=== PATIENT | male | born 1975 | race Caucasian/White ===

== ENCOUNTER 2019-07-03 19:43 | Observation (INO) ==
[2019-07-03] MEDS ORDERED: amLODIPine 5 MG TABLET PO STA (20:59)
[2019-07-03] MEDS ORDERED: cloNIDine HCl 0.1 MG TABLET PO ONE (20:59)
[2019-07-03 21:12] LABS: Basophils # 0.1 K/mcL (0.0-0.2); Basophils % 0.8 %; Eosinophils # 0.4 K/mcL (0.0-0.6); Eosinophils % 2.8 %; Hematocrit 39.2 % (37.5-50.1); Hemoglobin 13.5 g/dL (12.9-16.9); Immature Granulocytes % 0.2 % (0-4); Lymphocytes % 23.5 %; Mean Corpuscular HGB Conc 34.4 g/dL (31.6-35.5); Mean Corpuscular Hemoglobin 30.9 pg (28.0-33.3); Mean Corpuscular Volume 89.7 fL (83.0-100.0); Mean Platelet Volume 10.7 fL (9.4-12.4); Monocytes # 0.9 K/mcL (0.0-1.3); Monocytes % 6.9 %; Neutrophils # 8.3 K/mcL (1.6-8.9); Platelet Count 288 K/mcL (140-400); Red Blood Count 4.37 M/mcL (4.19-5.50); Red Cell Distribution Width 13.3 % (11.5-14.5); Segmented Neutrophils % 65.8 %; White Blood Count 12.7 K/mcL (4.3-11.1)
[2019-07-03 21:32] LABS: Alanine Aminotransferase 24 Units/L (7-52); Albumin 4.6 g/dL (3.5-5.7); Albumin/Globulin Ratio 1.6 (1.1-2.2); Alkaline Phosphatase 165 Units/L (34-104); Aspartate Amino Transferase 18 Units/L (13-39); BUN/Creatinine Ratio 11 (6-26); Bilirubin,Total 0.3 mg/dL (0.3-1.0); Blood Urea Nitrogen 44 mg/dL (6-20); Calcium 9.2 mg/dL (8.6-10.3); Carbon Dioxide 24 mEq/L (23-29); Chloride 102 mEq/L (98-107); Globulin 2.8 g/dL (2.4-3.5); Glucose 64 mg/dL (70-105); Osmolality,Calculated 297 (280-300); Potassium 4.1 mEq/L (3.5-5.1); Sodium 139 mEq/L (136-145); Total Protein 7.4 g/dL (6.4-8.9); Troponin I < 0.03 ng/mL (< 0.04); eGFR For African Americans 19 (> 60); eGFR For Non-African Americans 16 (> 60)
[2019-07-03 22:26] LABS: Bilirubin,Urine Negative (Negative); Blood,Urine Trace (Negative); Clarity,Urine Clear (Clear); Color,Urine Yellow (Yellow); Glucose,Urine (UA) Normal (Normal); Ketones,Urine Negative (Negative); Leukocyte Esterase,Urine Negative (Negative); Nitrite,Urine Negative (Negative); Protein,Urine 100 mg/dL (Neg-Trace); Specific Gravity,Urine 1.013 (1.010-1.025); Urobilinogen,Urine Normal (Normal)
[2019-07-03 22:29] LABS: Bacteria,Urine None Seen per hpf (None-Few); Hyaline Casts,Urine None Seen per lpf (None-Few); RBC,Urine 0-3 per hpf (0-3); Squamous Epithelial Cell,Urine None Seen per lpf (None-Few); WBC,Urine 0-3 per hpf (0-3)
[2019-07-03] MEDS ORDERED: 0.9 % Sodium Chloride 1,000 ML IVC ONE (23:11)
[2019-07-03] MEDS ORDERED: Naloxone 0.4 MG/ML INJ IVP PRN (23:41)
[2019-07-03] MEDS ORDERED: Dextrose Gel 15 GM/37.5 ML TUBE PO PRN ×2 (23:43)
[2019-07-03] MEDS ORDERED: *HR* Dextrose 50 % in Water (Syg) 50 ML SYRINGE IVP PRN (23:43)
[2019-07-03] MEDS ORDERED: D5% in Water 1,000 ML IVC PRN (23:43)
[2019-07-04 01:25] LABS: Basophils # 0.1 K/mcL (0.0-0.2); Basophils % 0.7 %; Eosinophils # 0.3 K/mcL (0.0-0.6); Eosinophils % 2.1 %; Hematocrit 37.4 % (37.5-50.1); Immature Granulocytes % 0.4 % (0-4); Lymphocytes # 4.1 K/mcL (0.6-4.6); Mean Corpuscular HGB Conc 34.8 g/dL (31.6-35.5); Mean Corpuscular Hemoglobin 30.5 pg (28.0-33.3); Mean Corpuscular Volume 87.8 fL (83.0-100.0); Mean Platelet Volume 10.9 fL (9.4-12.4); Monocytes # 0.7 K/mcL (0.0-1.3); Monocytes % 5.3 %; Neutrophils # 8.3 K/mcL (1.6-8.9); Platelet Count 274 K/mcL (140-400); Red Blood Count 4.26 M/mcL (4.19-5.50); Red Cell Distribution Width 13.4 % (11.5-14.5); Segmented Neutrophils % 61.5 %; White Blood Count 13.5 K/mcL (4.3-11.1)
[2019-07-04 01:42] LABS: Calcium 8.8 mg/dL (8.6-10.3); Potassium 4.7 mEq/L (3.5-5.1)
[2019-07-04] MEDS: *HR* Heparin 5,000 UNIT/ML VIAL SQ SCH ×2 (05:13→16:35)
[2019-07-04] MEDS: Insulin DETEMIR 100 UNIT/ML X5UNITS SQ SCH (08:04)
[2019-07-04] MEDS: Insulin LISPRO 300 UNITS/3 ML VIAL SQ SCH ×3 (08:04→16:35)
[2019-07-04] MEDS: Gabapentin 300 MG CAPSULE PO SCH ×2 (08:05→21:59)
[2019-07-04] MEDS: amLODIPine 5 MG TABLET PO SCH (08:05)
[2019-07-04 08:29] LABS: Estimated Average Glucose 151 mg/dl
[2019-07-04] MEDS: 0.9 % Sodium Chloride 1,000 ML IVC SCH ×2 (12:06→23:30)
[2019-07-04 21:38] LABS: Creatinine,Urine < 1 mg/dL; Microalbumin,Urine 240 mg/L
[2019-07-04 22:08] LABS: Bilirubin,Urine Negative (Negative); Blood,Urine Negative (Negative); Clarity,Urine Clear (Clear); Color,Urine Yellow (Yellow); Glucose,Urine (UA) Normal (Normal); Ketones,Urine Negative (Negative); Specific Gravity,Urine 1.008 (1.010-1.025)
[2019-07-04 22:09] LABS: Bacteria,Urine None Seen per hpf (None-Few); Leukocyte Esterase,Urine Negative (Negative); Nitrite,Urine Negative (Negative); Protein,Urine 30 mg/dL (Neg-Trace); Squamous Epithelial Cell,Urine Few per lpf (None-Few); Urobilinogen,Urine Normal (Normal)
[2019-07-05 03:30] LABS: Basophils # 0.1 K/mcL (0.0-0.2); Basophils % 0.7 %; Eosinophils # 0.5 K/mcL (0.0-0.6); Eosinophils % 3.5 %; Hematocrit 36.2 % (37.5-50.1); Hemoglobin 12.1 g/dL (12.9-16.9); Immature Granulocytes % 0.2 % (0-4); Lymphocytes # 5.9 K/mcL (0.6-4.6); Mean Corpuscular HGB Conc 33.4 g/dL (31.6-35.5); Mean Corpuscular Volume 89.8 fL (83.0-100.0); Mean Platelet Volume 11.3 fL (9.4-12.4); Monocytes # 0.8 K/mcL (0.0-1.3); Monocytes % 6.4 %; Neutrophils # 5.5 K/mcL (1.6-8.9); Platelet Count 256 K/mcL (140-400); Red Blood Count 4.03 M/mcL (4.19-5.50); Red Cell Distribution Width 13.5 % (11.5-14.5); Segmented Neutrophils % 43.2 %; White Blood Count 12.8 K/mcL (4.3-11.1)
[2019-07-05 03:52] LABS: Calcium 8.7 mg/dL (8.6-10.3); Potassium 4.3 mEq/L (3.5-5.1)
[2019-07-05 04:14] LABS: Hepatitis B Surface Antigen Nonreactive (Nonreactive)
[2019-07-05 04:43] LABS: Hepatitis C Virus Antibody Nonreactive (Nonreactive)
[2019-07-05 04:44] LABS: Hepatitis A Antibody IgM Nonreactive (Nonreactive); Hepatitis B Core IgM Nonreactive (Nonreactive)
[2019-07-05] MEDS: *HR* Heparin 5,000 UNIT/ML VIAL SQ SCH (06:16)
[2019-07-05] MEDS: Insulin DETEMIR 100 UNIT/ML X5UNITS SQ SCH (08:29)
[2019-07-05] MEDS: Insulin LISPRO 300 UNITS/3 ML VIAL SQ SCH ×2 (08:29→12:48)
[2019-07-05] MEDS: Gabapentin 300 MG CAPSULE PO SCH (08:29)
[2019-07-05] MEDS: amLODIPine 5 MG TABLET PO SCH (08:29)
[2019-07-05 11:43] VITALS: BP 120/68
== END 2019-07-05 13:43 | disposition home or self-care (01) ==
LOC: 2ANU 19:43 → EMEROOARM 19:43 → SUATTDRO 23:20 → 2ANU 07-04 00:02
PROVIDERS: ADMIT Internal Medicine; ATTEND Family Medicine

== ENCOUNTER 2020-10-18 18:34 | Observation (INO) ==
[2020-10-18] MEDS: 0.9 % Sodium Chloride 1,000 ML IVC SCH (18:57)
[2020-10-18 19:17] LABS: Basophils # 0.1 K/mcL (0.0-0.2); Basophils % 0.6 %; Eosinophils # 0.3 K/mcL (0.0-0.6); Eosinophils % 2.2 %; Hemoglobin 12.6 g/dL (12.9-16.9); Immature Granulocytes % 0.5 % (0-4); Lymphocytes # 2.2 K/mcL (0.6-4.6); Lymphocytes % 15.9 %; Mean Corpuscular HGB Conc 32.3 g/dL (31.6-35.5); Mean Corpuscular Hemoglobin 29.4 pg (28.0-33.3); Mean Corpuscular Volume 91.1 fL (83.0-100.0); Mean Platelet Volume 10.2 fL (9.4-12.4); Monocytes # 0.8 K/mcL (0.0-1.3); Neutrophils # 10.5 K/mcL (1.6-8.9); Platelet Count 296 K/mcL (140-400); Red Blood Count 4.28 M/mcL (4.19-5.50); Red Cell Distribution Width 14.6 % (11.5-14.5); Segmented Neutrophils % 74.8 %
[2020-10-18] MEDS ORDERED: Prochlorperazine 10 MG/2 ML VIAL IVP STA (19:17)
[2020-10-18 19:20] LABS: VBG HCO3 25 mEq/L (21-27); VBG PCO2 52 mmHg (41-51); VBG PH 7.29 pH Units (7.32-7.42); VBG PO2 45 mmHg (25-50)
[2020-10-18 19:30] LABS: Estimated Average Glucose 117 mg/dl; Hemoglobin A1C 5.7 %
[2020-10-18 19:43] LABS: BUN/Creatinine Ratio 10 (6-26); Blood Urea Nitrogen 47 mg/dL (6-20); Calcium 9.1 mg/dL (8.6-10.3); Carbon Dioxide 24 mEq/L (23-29); Chloride 107 mEq/L (98-107); Ethanol < 10 mg/dL (Less than 10); Glucose 81 mg/dL (70-105); Magnesium 2.3 mg/dL (1.6-2.6); Osmolality,Calculated 303 (280-300); Potassium 4.4 mEq/L (3.5-5.1); Sodium 141 mEq/L (136-145); eGFR For African Americans 18 (> 60); eGFR For Non-African Americans 15 (> 60)
[2020-10-18 20:09] LABS: Alanine Aminotransferase 16 Units/L (7-52); Albumin 4.8 g/dL (3.5-5.7); Albumin/Globulin Ratio 1.7 (1.1-2.2); Alkaline Phosphatase 189 Units/L (34-104); Aspartate Amino Transferase 16 Units/L (13-39); Bilirubin,Direct 0.1 mg/dL (0.0-0.2); Bilirubin,Indirect 0.5 mg/dL (0.0-1.0); Bilirubin,Total 0.6 mg/dL (0.3-1.0); Globulin 2.8 g/dL (2.4-3.5); Lipase 25 Units/L (11-82); Total Protein 7.6 g/dL (6.4-8.9)
[2020-10-18 20:49] LABS: Amphetamine Screen,Urine Negative ng/mL (Cutoff=1000); Barbiturate Screen,Urine Negative ng/mL (Cutoff=200); Benzodiazepines Screen,Urine Negative ng/mL (Cutoff=200); Cannabinoid Screen,Urine Negative ng/mL (Cutoff = 50); Cocaine Screen,Urine Negative ng/mL (Cutoff= 300); Opiate Screen,Urine Negative ng/mL (Cutoff=300); Phencyclidine Screen,Urine Negative ng/mL (Cutoff=25)
[2020-10-18] MEDS ORDERED: *HR* Dextrose 50 % in Water (Vial) 50 ML VIAL IVP ONE (21:50)
[2020-10-18] MEDS ORDERED: *HR* Promethazine 25 MG/ML VIAL IM ONE (22:14)
[2020-10-18] MEDS ORDERED: Metoclopramide 10 MG/2 ML VIAL IVP ONE (22:49)
[2020-10-18 22:51] LABS: Bilirubin,Urine Negative (Negative); Blood,Urine Trace (Negative); Clarity,Urine Clear (Clear); Color,Urine Colorless (Yellow); Glucose,Urine (UA) 150 mg/dL (Normal); Ketones,Urine Negative (Negative); Leukocyte Esterase,Urine Negative (Negative); Mucus,Urine Few per lpf (None-Few); Nitrite,Urine Negative (Negative); PH,Urine 6.5 pH Units (5.0-8.0); Protein,Urine 200 mg/dL (Neg-Trace); RBC,Urine 0-3 per hpf (0-3); Urobilinogen,Urine Normal (Normal); WBC,Urine 0-3 per hpf (0-3)
[2020-10-18] MEDS ORDERED: Haloperidol Lactate 5 MG/ML VIAL IVP ONE (22:52)
[2020-10-18] MEDS ORDERED: D5% in 0.9% NACL 1,000 ML IVC SCH (23:00)
[2020-10-19] MEDS ORDERED: Acetaminophen 325 MG TABLET PO PRN (00:59)
[2020-10-19] MEDS ORDERED: Ondansetron 4 MG/2 ML VIAL IVP PRN (00:59)
[2020-10-19] MEDS ORDERED: Naloxone 0.4 MG/ML INJ IVP PRN (00:59)
[2020-10-19] MEDS ORDERED: Melatonin 3 MG TABLET PO PRN (00:59)
[2020-10-19] MEDS: 0.9 % Sodium Chloride 1,000 ML IVC SCH (01:03)
[2020-10-19] MEDS ORDERED: 0.9 % Sodium Chloride 1,000 ML IVC ONE (05:47)
[2020-10-19] MEDS ORDERED: *HR* Dextrose 50 % in Water (Vial) 50 ML VIAL IVP PRN (05:48)
[2020-10-19] MEDS ORDERED: D5% in Water 1,000 ML IVC PRN (05:48)
[2020-10-19] MEDS ORDERED: Dextrose Gel 15 GM/37.5 ML TUBE PO PRN ×2 (05:48)
[2020-10-19 06:43] LABS: Basophils # 0.1 K/mcL (0.0-0.2); Basophils % 0.5 %; Eosinophils # 0.1 K/mcL (0.0-0.6); Eosinophils % 0.8 %; Hematocrit 33.3 % (37.5-50.1); Hemoglobin 11.2 g/dL (12.9-16.9); Immature Granulocytes % 0.3 % (0-4); Lymphocytes # 2.4 K/mcL (0.6-4.6); Lymphocytes % 20.9 %; Mean Corpuscular HGB Conc 33.6 g/dL (31.6-35.5); Mean Corpuscular Hemoglobin 30.4 pg (28.0-33.3); Mean Corpuscular Volume 90.2 fL (83.0-100.0); Mean Platelet Volume 10.6 fL (9.4-12.4); Monocytes # 0.8 K/mcL (0.0-1.3); Monocytes % 6.7 %; Neutrophils # 8.1 K/mcL (1.6-8.9); Platelet Count 269 K/mcL (140-400); Red Blood Count 3.69 M/mcL (4.19-5.50); Red Cell Distribution Width 14.5 % (11.5-14.5); Segmented Neutrophils % 70.8 %; White Blood Count 11.5 K/mcL (4.3-11.1)
[2020-10-19 06:49] LABS: INR 1.1; Prothrombin Time 12.6 Seconds (9.4-12.1)
[2020-10-19 07:00] LABS: Albumin 4.4 g/dL (3.5-5.7); Albumin/Globulin Ratio 1.7 (1.1-2.2); Bilirubin,Total 0.6 mg/dL (0.3-1.0); Chol/HDL Ratio 3.8 (0-4.9); Globulin 2.6 g/dL (2.4-3.5); Phosphorous 3.7 mg/dL (2.7-4.5); Potassium 4.8 mEq/L (3.5-5.1)
[2020-10-19] MEDS: Insulin LISPRO 300 UNITS/3 ML VIAL SUBQ SCH ×2 (08:12→11:47)
[2020-10-19] MEDS ORDERED: Insulin DETEMIR 100 UNIT/ML X5UNITS SUBQ SCH (09:00)
[2020-10-19 11:22] VITALS: BP 158/94
[2020-10-19] MEDS ORDERED: Insulin LISPRO 300 UNITS/3 ML VIAL SUBQ SCH (21:00)
== END 2020-10-19 13:39 | disposition home or self-care (01) ==
LOC: EMEROOARM 18:34 → CDU 18:34 → EMEROOARM 21:43 → SUATTDRO 23:43 → CDU 10-19 00:01
PROVIDERS: ADMIT Internal Medicine; ATTEND Internal Medicine

== ENCOUNTER 2022-02-27 15:16 | Inpatient (IN) ==
[2022-02-27] MEDS ORDERED: Iopamidol - 370 500 ML MLS IVP ONE (18:53)
[2022-02-27 19:09] LABS: Basophils # 0.1 K/mcL (0.0-0.2); Basophils % 0.9 %; Eosinophils # 1.2 K/mcL (0.0-0.6); Eosinophils % 8.1 %; Hematocrit 32.7 % (37.5-50.1); Hemoglobin 10.8 g/dL (12.9-16.9); Immature Granulocytes % 0.5 % (0-4); Lymphocytes % 33.9 %; Mean Corpuscular Hemoglobin 31.9 pg (28.0-33.3); Mean Corpuscular Volume 96.5 fL (83.0-100.0); Mean Platelet Volume 10.2 fL (9.4-12.4); Monocytes # 1.2 K/mcL (0.0-1.3); Monocytes % 8.2 %; Neutrophils # 7.1 K/mcL (1.6-8.9); Platelet Count 308 K/mcL (140-400); Red Blood Count 3.39 M/mcL (4.19-5.50); Red Cell Distribution Width 14.1 % (11.5-14.5); Segmented Neutrophils % 48.4 %; White Blood Count 14.7 K/mcL (4.3-11.1)
[2022-02-27 19:33] LABS: Calcium 8.7 mg/dL (8.6-10.3); Potassium 3.7 mEq/L (3.5-5.1)
[2022-02-27] MEDS ORDERED: Piperacillin/Tazobactam 3.375 GM in 0.9 % Sodium Chloride Mini Bag 100 ML IVPB ONE (19:34)
[2022-02-27] MEDS ORDERED: Melatonin 3 MG TABLET PO PRN (20:58)
[2022-02-27] MEDS ORDERED: Ondansetron 4 MG/2 ML VIAL IVP PRN (20:58)
[2022-02-27] MEDS ORDERED: Naloxone 0.4 MG/ML INJ IVP PRN (20:58)
[2022-02-27] MEDS ORDERED: D5% in Water 1,000 ML IVC PRN (22:11)
[2022-02-27] MEDS ORDERED: Dextrose Gel 15 GM/37.5 ML TUBE PO PRN ×2 (22:11)
[2022-02-27] MEDS ORDERED: Vancomycin 1,250 MG/262.5 ML IV.SOLN IVPB ONE (23:00)
[2022-02-28 06:02] LABS: Hematocrit 29.9 % (37.5-50.1); Hemoglobin 10.2 g/dL (12.9-16.9); Mean Corpuscular HGB Conc 34.1 g/dL (31.6-35.5); Mean Corpuscular Hemoglobin 32.4 pg (28.0-33.3); Mean Corpuscular Volume 94.9 fL (83.0-100.0); Mean Platelet Volume 10.3 fL (9.4-12.4); Platelet Count 281 K/mcL (140-400); Red Blood Count 3.15 M/mcL (4.19-5.50); Red Cell Distribution Width 14.2 % (11.5-14.5); White Blood Count 13.4 K/mcL (4.3-11.1)
[2022-02-28 06:35] LABS: Calcium 8.1 mg/dL (8.6-10.3)
[2022-02-28] MEDS ORDERED: 0.9 % Sodium Chloride 250 ML IVC PRN (07:41)
[2022-02-28] MEDS ORDERED: 0.9 % Sodium Chloride 2,000 ML PRIME SCH (07:45)
[2022-02-28] MEDS: Piperacillin/Tazobactam 3.375 GM in 0.9 % Sodium Chloride Mini Bag 100 ML IVPB SCH ×2 (09:18→20:52)
[2022-02-28 09:32] LABS: Prothrombin Time 11.4 Seconds (9.4-12.1)
[2022-02-28] MEDS: Insulin LISPRO 300 UNITS/3 ML VIAL SUBQ SCH ×3 (09:59→18:14)
[2022-02-28] MEDS ORDERED: Insulin DETEMIR 100 UNIT/ML X5UNITS SUBQ SCH (10:00)
[2022-02-28 10:01] LABS: Hepatitis B Surface Antibody < 3.10 mIU/mL
[2022-02-28 10:12] LABS: Hepatitis B Surface Antigen Nonreactive (Nonreactive)
[2022-02-28] MEDS ORDERED: Heparin 1,000 UNITS/500 mL 500 ML ONE (12:20)
[2022-02-28] MEDS ORDERED: Lidocaine/EPI 1:100k 1% 50 ML VIAL ONE (12:20)
[2022-02-28] MEDS ORDERED: *HR* Heparin 5,000 UNIT/ML VIAL ONE (12:27)
[2022-02-28] MEDS ORDERED: *HR* OxyCODONE Immed Rel 5 MG TABLET PO ONE (14:41)
[2022-02-28] MEDS ORDERED: *HR* Heparin 10,000 UNIT/10 ML VIAL IV PRN (18:04)
[2022-02-28] MEDS: Insulin DETEMIR 100 UNIT/ML X5UNITS SUBQ SCH (20:52)
[2022-03-01] MEDS ORDERED: Vancomycin 500 MG in 0.9 % Sodium Chloride Mini Bag 100 ML IVPB ONE (06:00)
[2022-03-01] MEDS: Piperacillin/Tazobactam 3.375 GM in 0.9 % Sodium Chloride Mini Bag 100 ML IVPB SCH ×2 (07:38→20:51)
[2022-03-01] MEDS: Calcium Acetate 667 MG CAPSULE PO SCH ×3 (07:40→17:14)
[2022-03-01] MEDS: carvediloL 6.25 MG TABLET PO SCH ×2 (07:41→17:14)
[2022-03-01] MEDS: BuPROPion SR (12 HR) 100 MG TABLET PO SCH (07:52)
[2022-03-01] MEDS: Vitamin B Complex/Vit C/Vit E 1 EACH TABLET PO SCH (07:52)
[2022-03-01] MEDS: Insulin LISPRO 300 UNITS/3 ML VIAL SUBQ SCH ×3 (07:58→17:14)
[2022-03-01 09:44] LABS: Basophils # 0.1 K/mcL (0.0-0.2); Basophils % 0.9 %; Eosinophils # 0.9 K/mcL (0.0-0.6); Eosinophils % 7.2 %; Hematocrit 29.4 % (37.5-50.1); Hemoglobin 9.8 g/dL (12.9-16.9); Immature Granulocytes % 0.3 % (0-4); Lymphocytes # 3.5 K/mcL (0.6-4.6); Lymphocytes % 26.9 %; Mean Corpuscular HGB Conc 33.3 g/dL (31.6-35.5); Mean Corpuscular Hemoglobin 31.9 pg (28.0-33.3); Mean Corpuscular Volume 95.8 fL (83.0-100.0); Mean Platelet Volume 10.3 fL (9.4-12.4); Monocytes # 1.2 K/mcL (0.0-1.3); Monocytes % 9.3 %; Neutrophils # 7.1 K/mcL (1.6-8.9); Platelet Count 257 K/mcL (140-400); Red Blood Count 3.07 M/mcL (4.19-5.50); Red Cell Distribution Width 13.9 % (11.5-14.5); Segmented Neutrophils % 55.4 %; White Blood Count 12.8 K/mcL (4.3-11.1)
[2022-03-01 09:55] LABS: Calcium 8.6 mg/dL (8.6-10.3); Potassium 4.2 mEq/L (3.5-5.1)
[2022-03-01] MEDS ORDERED: Insulin LISPRO 300 UNITS/3 ML VIAL SUBQ ONE (18:34)
[2022-03-01] MEDS: *HR* Dextrose 50 % in Water (Syg) 50 ML SYRINGE IVP PRN ×2 (20:13→22:12)
[2022-03-01] MEDS: Insulin DETEMIR 100 UNIT/ML X5UNITS SUBQ SCH (20:43)
[2022-03-02] MEDS ORDERED: Insulin LISPRO 300 UNITS/3 ML VIAL SUBQ ONE (03:52)
[2022-03-02 04:14] LABS: Hematocrit 30.8 % (37.5-50.1); Mean Corpuscular HGB Conc 32.5 g/dL (31.6-35.5); Mean Corpuscular Hemoglobin 31.9 pg (28.0-33.3); Mean Corpuscular Volume 98.4 fL (83.0-100.0); Mean Platelet Volume 10.8 fL (9.4-12.4); Platelet Count 257 K/mcL (140-400); Red Blood Count 3.13 M/mcL (4.19-5.50); Red Cell Distribution Width 13.9 % (11.5-14.5); Segmented Neutrophils % 61.7 %; White Blood Count 15.7 K/mcL (4.3-11.1)
[2022-03-02 04:15] LABS: Basophils # 0.1 K/mcL (0.0-0.2); Basophils % 0.9 %; Eosinophils # 0.9 K/mcL (0.0-0.6); Eosinophils % 5.9 %; Immature Granulocytes % 0.3 % (0-4); Lymphocytes # 3.6 K/mcL (0.6-4.6); Lymphocytes % 22.8 %; Monocytes # 1.3 K/mcL (0.0-1.3); Monocytes % 8.4 %; Neutrophils # 9.7 K/mcL (1.6-8.9)
[2022-03-02 05:08] LABS: Calcium 8.5 mg/dL (8.6-10.3); Potassium 5.7 mEq/L (3.5-5.1)
[2022-03-02] MEDS: Calcium Acetate 667 MG CAPSULE PO SCH ×3 (07:24→17:07)
[2022-03-02] MEDS ORDERED: 0.9 % Sodium Chloride 250 ML IVC PRN (07:26)
[2022-03-02] MEDS: Insulin LISPRO 300 UNITS/3 ML VIAL SUBQ SCH ×3 (08:02→17:08)
[2022-03-02] MEDS: Vitamin B Complex/Vit C/Vit E 1 EACH TABLET PO SCH (08:02)
[2022-03-02] MEDS: Piperacillin/Tazobactam 3.375 GM in 0.9 % Sodium Chloride Mini Bag 100 ML IVPB SCH ×2 (08:03→20:59)
[2022-03-02] MEDS: BuPROPion SR (12 HR) 100 MG TABLET PO SCH (08:15)
[2022-03-02] MEDS ORDERED: Insulin DETEMIR 100 UNIT/ML X5UNITS SUBQ SCH (09:00)
[2022-03-02] MEDS ORDERED: Albumin 25% 25gram/100mL 25 GM/100 ML IV.SOLN IVPB STA (11:40)
[2022-03-02] MEDS: carvediloL 6.25 MG TABLET PO SCH ×2 (12:43→17:07)
[2022-03-02] MEDS ORDERED: Dextrose Gel 15 GM/37.5 ML TUBE PO PRN ×4 (20:02→20:04)
[2022-03-02] MEDS ORDERED: D5% in Water 1,000 ML IVC PRN ×2 (20:02→20:04)
[2022-03-02] MEDS ORDERED: *HR* Dextrose 50 % in Water (Syg) 50 ML SYRINGE IVP PRN ×2 (20:02→20:04)
[2022-03-02] MEDS: Acetaminophen 325 MG TABLET PO PRN (20:59)
[2022-03-02] MEDS ORDERED: Insulin LISPRO 300 UNITS/3 ML VIAL SUBQ SCH (21:00)
[2022-03-03 06:22] LABS: Phosphorous 3.5 mg/dL (2.7-4.5); Potassium 3.7 mEq/L (3.5-5.1)
[2022-03-03 06:34] LABS: Basophils # 0.1 K/mcL (0.0-0.2); Basophils % 1.1 %; Eosinophils # 1.1 K/mcL (0.0-0.6); Eosinophils % 8.8 %; Hematocrit 28.3 % (37.5-50.1); Hemoglobin 9.5 g/dL (12.9-16.9); Immature Granulocytes % 0.2 % (0-4); Lymphocytes # 4.5 K/mcL (0.6-4.6); Lymphocytes % 36.2 %; Mean Corpuscular HGB Conc 33.6 g/dL (31.6-35.5); Mean Corpuscular Hemoglobin 32.3 pg (28.0-33.3); Mean Corpuscular Volume 96.3 fL (83.0-100.0); Mean Platelet Volume 10.6 fL (9.4-12.4); Monocytes % 7.8 %; Neutrophils # 5.8 K/mcL (1.6-8.9); Platelet Count 226 K/mcL (140-400); Red Blood Count 2.94 M/mcL (4.19-5.50); Red Cell Distribution Width 13.5 % (11.5-14.5); Segmented Neutrophils % 45.9 %; White Blood Count 12.5 K/mcL (4.3-11.1)
[2022-03-03] MEDS ORDERED: Lidocaine -MPF 2% 2 ML VIAL ONE (07:27)
[2022-03-03] MEDS ORDERED: *HR* Succinylcholine 200 MG/10 ML VIAL IVP ONE (07:27)
[2022-03-03] MEDS ORDERED: Ondansetron 4 MG/2 ML VIAL ONE (07:27)
[2022-03-03] MEDS ORDERED: *HR* Propofol 200 MG/20 ML VIAL IVP ONE (07:28)
[2022-03-03] MEDS: Insulin LISPRO 300 UNITS/3 ML VIAL SUBQ SCH ×4 (08:04→21:37)
[2022-03-03] MEDS: Calcium Acetate 667 MG CAPSULE PO SCH ×3 (08:12→16:23)
[2022-03-03] MEDS: carvediloL 6.25 MG TABLET PO SCH ×2 (08:12→16:24)
[2022-03-03] MEDS: Vitamin B Complex/Vit C/Vit E 1 EACH TABLET PO SCH (08:12)
[2022-03-03] MEDS: BuPROPion SR (12 HR) 100 MG TABLET PO SCH (08:12)
[2022-03-03] MEDS: Piperacillin/Tazobactam 3.375 GM in 0.9 % Sodium Chloride Mini Bag 100 ML IVPB SCH (08:13)
[2022-03-03] MEDS ORDERED: *HR* FentaNYL (PF) 100 MCG/2 ML VIAL ONE (09:01)
[2022-03-03] MEDS ORDERED: *HR* OxyCODONE Immed Rel 5 MG TABLET PO PRN (09:23)
[2022-03-03] MEDS ORDERED: Acetaminophen IV 1,000 MG/100 ML BAG IVPB ONE ×2 (09:23→14:03)
[2022-03-03] MEDS ORDERED: Famotidine 20 MG/2 ML VIAL IVP ONE ×2 (09:23→14:03)
[2022-03-03] MEDS ORDERED: *HR* Labetalol 20 MG/4 ML SYRINGE IVP PRN ×2 (09:23→14:03)
[2022-03-03] MEDS ORDERED: *HR* HYDROmorphone (PF) 1 MG/ML SYRINGE IVP PRN (09:23)
[2022-03-03] MEDS ORDERED: Ondansetron 4 MG/2 ML VIAL IVP PRN ×3 (09:23→14:03)
[2022-03-03] MEDS ORDERED: Lidocaine/EPI 1:100k 1% 50 ML VIAL ONE (09:28)
[2022-03-03] MEDS ORDERED: Heparin 1,000 UNITS/500 mL 500 ML ONE (09:28)
[2022-03-03] MEDS ORDERED: Sugammadex Sodium 200 MG/2 ML VIAL IV ONE (09:48)
[2022-03-03] MEDS: Acetaminophen 325 MG TABLET PO PRN (13:00)
[2022-03-03] MEDS ORDERED: Naloxone 0.4 MG/ML INJ IVP PRN (14:03)
[2022-03-03] MEDS ORDERED: Dextrose Gel 15 GM/37.5 ML TUBE PO PRN ×2 (14:03)
[2022-03-03] MEDS ORDERED: *HR* Dextrose 50 % in Water (Syg) 50 ML SYRINGE IVP PRN (14:03)
[2022-03-03] MEDS ORDERED: D5% in Water 1,000 ML IVC PRN (14:03)
[2022-03-03] MEDS ORDERED: Melatonin 3 MG TABLET PO PRN (14:03)
[2022-03-03] MEDS ORDERED: Acetaminophen 325 MG TABLET PO PRN (14:03)
[2022-03-03] MEDS: Amoxicillin/Clavulanate 500 MG TABLET PO SCH (16:24)
[2022-03-03] MEDS ORDERED: Amoxicillin/Clavulanate 500 MG TABLET PO SCH (17:00)
[2022-03-03] MEDS ORDERED: Insulin LISPRO 300 UNITS/3 ML VIAL SUBQ ONE (23:43)
[2022-03-04 06:04] LABS: Basophils # 0.1 K/mcL (0.0-0.2); Basophils % 0.5 %; Eosinophils # 0.1 K/mcL (0.0-0.6); Eosinophils % 0.6 %; Hematocrit 24.9 % (37.5-50.1); Hemoglobin 8.4 g/dL (12.9-16.9); Immature Granulocytes % 0.4 % (0-4); Lymphocytes # 2.4 K/mcL (0.6-4.6); Lymphocytes % 15.7 %; Mean Corpuscular HGB Conc 33.7 g/dL (31.6-35.5); Mean Corpuscular Hemoglobin 32.3 pg (28.0-33.3); Mean Corpuscular Volume 95.8 fL (83.0-100.0); Mean Platelet Volume 10.5 fL (9.4-12.4); Monocytes # 1.3 K/mcL (0.0-1.3); Monocytes % 8.5 %; Neutrophils # 11.3 K/mcL (1.6-8.9); Platelet Count 203 K/mcL (140-400); Red Cell Distribution Width 13.5 % (11.5-14.5); Segmented Neutrophils % 74.3 %; White Blood Count 15.3 K/mcL (4.3-11.1)
[2022-03-04 06:29] LABS: Calcium 8.8 mg/dL (8.6-10.3); Potassium 4.6 mEq/L (3.5-5.1)
[2022-03-04] MEDS: Amoxicillin/Clavulanate 500 MG TABLET PO SCH ×2 (07:58→16:40)
[2022-03-04] MEDS: BuPROPion SR (12 HR) 100 MG TABLET PO SCH (07:58)
[2022-03-04] MEDS: Vitamin B Complex/Vit C/Vit E 1 EACH TABLET PO SCH (07:58)
[2022-03-04] MEDS: carvediloL 6.25 MG TABLET PO SCH ×2 (07:58→16:40)
[2022-03-04] MEDS: Calcium Acetate 667 MG CAPSULE PO SCH ×3 (07:59→16:41)
[2022-03-04] MEDS: Insulin LISPRO 300 UNITS/3 ML VIAL SUBQ SCH ×4 (08:00→20:55)
[2022-03-04] MEDS: Insulin DETEMIR 100 UNIT/ML X5UNITS SUBQ SCH (08:06)
[2022-03-04] MEDS ORDERED: 0.9 % Sodium Chloride 250 ML IVC PRN ×2 (08:44→08:57)
[2022-03-04] MEDS ORDERED: *HR* Heparin 10,000 UNIT/10 ML VIAL IV PRN ×2 (08:44→08:57)
[2022-03-04] MEDS ORDERED: 0.9 % Sodium Chloride 2,000 ML PRIME SCH (08:45)
[2022-03-04] MEDS ORDERED: Insulin LISPRO 300 UNITS/3 ML VIAL SUBQ ONE ×2 (09:27→21:30)
[2022-03-04] MEDS ORDERED: Albumin 25% 25gram/100mL 25 GM/100 ML IV.SOLN IVPB ONE (09:32)
[2022-03-05 06:37] LABS: % Iron Saturation 25 % (20-55); Iron 64 mcg/dL (65-175); Transferrin 182 mg/dL (203-362)
[2022-03-05] MEDS: Calcium Acetate 667 MG CAPSULE PO SCH ×3 (08:16→16:16)
[2022-03-05] MEDS: Amoxicillin/Clavulanate 500 MG TABLET PO SCH ×2 (08:17→16:16)
[2022-03-05] MEDS: Insulin DETEMIR 100 UNIT/ML X5UNITS SUBQ SCH (08:17)
[2022-03-05] MEDS: carvediloL 6.25 MG TABLET PO SCH ×2 (08:17→16:16)
[2022-03-05] MEDS: BuPROPion SR (12 HR) 100 MG TABLET PO SCH (08:17)
[2022-03-05] MEDS: Vitamin B Complex/Vit C/Vit E 1 EACH TABLET PO SCH (08:17)
[2022-03-05] MEDS: Insulin LISPRO 300 UNITS/3 ML VIAL SUBQ SCH ×6 (08:18→20:37)
[2022-03-05 08:48] LABS: Basophils # 0.2 K/mcL (0.0-0.2); Basophils % 1.1 %; Eosinophils % 6.8 %; Hematocrit 28.3 % (37.5-50.1); Hemoglobin 9.5 g/dL (12.9-16.9); Immature Granulocytes % 0.4 % (0-4); Lymphocytes # 4.2 K/mcL (0.6-4.6); Lymphocytes % 28.6 %; Mean Corpuscular HGB Conc 33.6 g/dL (31.6-35.5); Mean Corpuscular Hemoglobin 32.2 pg (28.0-33.3); Mean Corpuscular Volume 95.9 fL (83.0-100.0); Mean Platelet Volume 10.4 fL (9.4-12.4); Monocytes # 0.9 K/mcL (0.0-1.3); Monocytes % 6.2 %; Neutrophils # 8.3 K/mcL (1.6-8.9); Platelet Count 236 K/mcL (140-400); Red Blood Count 2.95 M/mcL (4.19-5.50); Red Cell Distribution Width 13.4 % (11.5-14.5); Segmented Neutrophils % 56.9 %; White Blood Count 14.7 K/mcL (4.3-11.1)
[2022-03-05 09:11] LABS: Calcium 8.7 mg/dL (8.6-10.3); Potassium 4.4 mEq/L (3.5-5.1)
[2022-03-05] MEDS ORDERED: Insulin DETEMIR 100 UNIT/ML X5UNITS SUBQ SCH (21:00)
[2022-03-06] MEDS: Insulin LISPRO 300 UNITS/3 ML VIAL SUBQ SCH ×7 (07:49→20:16)
[2022-03-06] MEDS: BuPROPion SR (12 HR) 100 MG TABLET PO SCH (07:54)
[2022-03-06] MEDS: carvediloL 6.25 MG TABLET PO SCH ×2 (07:55→17:00)
[2022-03-06] MEDS: Vitamin B Complex/Vit C/Vit E 1 EACH TABLET PO SCH (07:55)
[2022-03-06] MEDS ORDERED: Vancomycin 0 MG in 0.9 % Sodium Chloride 250 ML IVPB SCH (08:00)
[2022-03-06] MEDS: Calcium Acetate 667 MG CAPSULE PO SCH ×3 (08:04→16:59)
[2022-03-06] MEDS: Insulin DETEMIR 100 UNIT/ML X5UNITS SUBQ SCH (08:15)
[2022-03-06 08:52] LABS: Basophils # 0.1 K/mcL (0.0-0.2); Eosinophils # 1.3 K/mcL (0.0-0.6); Eosinophils % 11.1 %; Hematocrit 26.8 % (37.5-50.1); Hemoglobin 9.1 g/dL (12.9-16.9); Immature Granulocytes % 0.4 % (0-4); Lymphocytes # 3.2 K/mcL (0.6-4.6); Lymphocytes % 27.1 %; Mean Corpuscular Volume 94.4 fL (83.0-100.0); Mean Platelet Volume 10.1 fL (9.4-12.4); Monocytes % 8.1 %; Neutrophils # 6.1 K/mcL (1.6-8.9); Platelet Count 219 K/mcL (140-400); Red Blood Count 2.84 M/mcL (4.19-5.50); Red Cell Distribution Width 13.2 % (11.5-14.5); Segmented Neutrophils % 52.3 %; White Blood Count 11.8 K/mcL (4.3-11.1)
[2022-03-06 09:17] LABS: Potassium 4.2 mEq/L (3.5-5.1)
[2022-03-06] MEDS ORDERED: Heparin 1,000 UNITS/500 mL 500 ML ONE (09:45)
[2022-03-07 04:08] LABS: Basophils # 0.1 K/mcL (0.0-0.2); Basophils % 0.9 %; Eosinophils # 1.2 K/mcL (0.0-0.6); Eosinophils % 9.3 %; Hematocrit 25.9 % (37.5-50.1); Hemoglobin 8.8 g/dL (12.9-16.9); Immature Granulocytes % 0.4 % (0-4); Lymphocytes # 4.4 K/mcL (0.6-4.6); Lymphocytes % 33.3 %; Mean Corpuscular Hemoglobin 32.2 pg (28.0-33.3); Mean Corpuscular Volume 94.9 fL (83.0-100.0); Mean Platelet Volume 10.2 fL (9.4-12.4); Monocytes # 1.1 K/mcL (0.0-1.3); Monocytes % 7.9 %; Neutrophils # 6.4 K/mcL (1.6-8.9); Platelet Count 218 K/mcL (140-400); Red Blood Count 2.73 M/mcL (4.19-5.50); Red Cell Distribution Width 13.5 % (11.5-14.5); Segmented Neutrophils % 48.2 %; White Blood Count 13.3 K/mcL (4.3-11.1)
[2022-03-07 04:28] LABS: Calcium 8.8 mg/dL (8.6-10.3); Potassium 4.4 mEq/L (3.5-5.1)
[2022-03-07] MEDS ORDERED: *HR* Heparin 10,000 UNIT/10 ML VIAL IV PRN (08:02)
[2022-03-07] MEDS ORDERED: 0.9 % Sodium Chloride 250 ML IVC PRN (08:02)
[2022-03-07] MEDS: carvediloL 6.25 MG TABLET PO SCH ×2 (08:03→17:00)
[2022-03-07] MEDS: BuPROPion SR (12 HR) 100 MG TABLET PO SCH (08:03)
[2022-03-07] MEDS: Insulin DETEMIR 100 UNIT/ML X5UNITS SUBQ SCH (08:03)
[2022-03-07] MEDS: Vitamin B Complex/Vit C/Vit E 1 EACH TABLET PO SCH (08:03)
[2022-03-07] MEDS: Calcium Acetate 667 MG CAPSULE PO SCH ×3 (08:03→16:59)
[2022-03-07] MEDS: Insulin LISPRO 300 UNITS/3 ML VIAL SUBQ SCH ×4 (08:04→20:38)
[2022-03-07] MEDS ORDERED: 0.9 % Sodium Chloride 2,000 ML PRIME SCH (08:15)
[2022-03-07] MEDS ORDERED: Vancomycin 500 MG in 0.9 % Sodium Chloride Mini Bag 100 ML IVPB ONE (16:00)
[2022-03-08] MEDS ORDERED: *HR* Labetalol 20 MG/4 ML SYRINGE IVP ONE (02:48)
[2022-03-08 03:27] LABS: Basophils # 0.1 K/mcL (0.0-0.2); Basophils % 0.8 %; Eosinophils # 1.3 K/mcL (0.0-0.6); Eosinophils % 9.8 %; Hematocrit 27.3 % (37.5-50.1); Hemoglobin 9.2 g/dL (12.9-16.9); Immature Granulocytes % 0.5 % (0-4); Lymphocytes # 4.2 K/mcL (0.6-4.6); Lymphocytes % 31.7 %; Mean Corpuscular HGB Conc 33.7 g/dL (31.6-35.5); Mean Corpuscular Hemoglobin 32.1 pg (28.0-33.3); Mean Corpuscular Volume 95.1 fL (83.0-100.0); Mean Platelet Volume 10.5 fL (9.4-12.4); Monocytes # 1.2 K/mcL (0.0-1.3); Monocytes % 9.3 %; Neutrophils # 6.3 K/mcL (1.6-8.9); Platelet Count 245 K/mcL (140-400); Red Blood Count 2.87 M/mcL (4.19-5.50); Red Cell Distribution Width 13.6 % (11.5-14.5); Segmented Neutrophils % 47.9 %; White Blood Count 13.2 K/mcL (4.3-11.1)
[2022-03-08 04:08] LABS: Calcium 8.8 mg/dL (8.6-10.3); Potassium 4.3 mEq/L (3.5-5.1)
[2022-03-08] MEDS: Insulin LISPRO 300 UNITS/3 ML VIAL SUBQ SCH ×3 (07:49→15:25)
[2022-03-08] MEDS: Calcium Acetate 667 MG CAPSULE PO SCH ×2 (08:21→11:38)
[2022-03-08] MEDS: Vitamin B Complex/Vit C/Vit E 1 EACH TABLET PO SCH (08:30)
[2022-03-08] MEDS: Insulin DETEMIR 100 UNIT/ML X5UNITS SUBQ SCH (08:31)
[2022-03-08] MEDS: BuPROPion SR (12 HR) 100 MG TABLET PO SCH (08:31)
[2022-03-08] MEDS: carvediloL 6.25 MG TABLET PO SCH (08:31)
[2022-03-08] MEDS ORDERED: Lidocaine/EPI 1:100k 1% 50 ML VIAL ONE (09:53)
[2022-03-08] MEDS ORDERED: Heparin 1,000 UNITS/500 mL 500 ML ONE (09:53)
[2022-03-08] MEDS ORDERED: *HR* Midazolam HCl 2 MG/2 ML VIAL ONE (12:59)
[2022-03-08] MEDS ORDERED: *HR* FentaNYL (PF) 100 MCG/2 ML VIAL ONE (12:59)
[2022-03-08] MEDS ORDERED: *HR* Heparin 5,000 UNIT/ML VIAL ONE (13:30)
[2022-03-08] MEDS ORDERED: *HR* OxyCODONE Immed Rel 5 MG TABLET PO PRN (13:46)
[2022-03-08 14:32] VITALS: TEMP 98.1
[2022-03-08 14:40] VITALS: BP 137/85; PULSE 79; O2SAT 98
== END 2022-03-08 17:00 | disposition home or self-care (01) | DRG 907 ==
LOC: 2ANU 15:16 → EMEROOARM 15:16 → SUATTDRO 21:22 → 2ANU 22:21 → SUATTDRO 03-01 13:35
PROVIDERS: ADMIT Student in an Organized Health Care Education/Training Program; ATTEND Pharmacist
PROC: IRPERMA (2022-02-28 12:00)